=== PATIENT | male | born 1975 | race Caucasian/White ===

== ENCOUNTER 2018-12-12 15:04 | Emergency (ER) | payer MEDICAID, OTHER ==
[~2018-12-12] VITALS: Ht 170.2 cm; Wt 120.2 kg
[2018-12-12 15:19] VITALS: BP 111/81
--- NOTE | 2018-12-12 15:23 | NUR ---
PT W/C ASSISTED TO BED 11.
--- NOTE | 2018-12-12 15:24 | NUR ---
C/O L KNEE PAIN X 2 DAYS. DENIES TRAUMA. MED HX:DM
--- NOTE | 2018-12-12 15:32 | NUR ---
IDALIA ELI EVALUATING PT AT BEDSIDE.
[2018-12-12] MEDS ORDERED: KETOROLAC 30 MG/ML VIAL IM ONE (15:35)
--- NOTE | 2018-12-12 17:35 | NUR ---
APPLIED KNEE IMOBILIZER TO LEFT KNEE WITHOUT ANY ISSUES
[2018-12-12 17:40] VITALS: BP 112/76
--- NOTE | 2018-12-12 17:40 | NUR ---
Patient discharged with v/s stable. Written and verbal after care instructions given and explained. Patient alert, oriented and verbalized understanding of instructions. Ambulatory with crutchest and knee brace. All questions addressed prior to discharge. ID band removed. Patient advised to follow up with PMD. Rx of Naprosyn given. Patient educated on indication of medication including possible reaction and side effects. Opportunity to ask questions provided and answered.
== END 2018-12-12 17:40 | disposition home or self-care (01) ==
LOC: MED 15:04
DX: M25.562 Pain in left knee (principal); E11.9 Type 2 diabetes mellitus without complications
CPT/HCPCS: 29505; 73562; 96372; 99283; J1885; Q0092

== ENCOUNTER 2019-09-18 21:44 | Emergency (ER) | payer MEDICAID, OTHER ==
[~2019-09-18] VITALS: Ht 170.2 cm; Wt 113.4 kg
--- NOTE | 2019-09-18 21:44 | NUR ---
ALEKS JOHN ALS TO ER BED 07
[2019-09-18 21:47] VITALS: BP 156/93
[2019-09-18] MEDS ORDERED: NACL 0.9% 1,000 ML IV ONE (21:55)
--- NOTE | 2019-09-18 22:12 | NUR ---
44M PRESENTS TO ED BIBA FROM HOME WITH C/O ANXIETY S/P METH USE X3 HOURS AGO. CBL SOUNDS. RR EVEN AND UNLABORED. PT APPEARS DIAPHORETIC AND LETHARGIC SECONDARY TO METH USE. BOWEL SOUNDS NORMOACTIVE ON ALL QUADRANTS. DENIES SOB/COUGH. DENIES N/V/D. DENIES HEADACHE. MEDHX- DM NKA NEGATIVE FOR COVID SCREENING .
[2019-09-18 23:46] VITALS: BP 144/76
--- NOTE | 2019-09-19 00:37 | NUR ---
Patient discharged with v/s stable. Written and verbal after care instructions given and explained. Patient verbalized understanding. Ambulatory with steady gait. All questions addressed prior to discharge. Advised to follow up with PMD.
== END 2019-09-19 00:37 | disposition home or self-care (01) ==
LOC: MED 21:44
DX: F41.9 Anxiety disorder, unspecified (principal); F15.10 Other stimulant abuse, uncomplicated; E11.9 Type 2 diabetes mellitus without complications
CPT/HCPCS: 81002; 81025; 99283; J7030

== ENCOUNTER 2019-12-01 16:53 | Emergency (ER) | payer OTHER ==
[~2019-12-01] VITALS: Ht 170.2 cm; Wt 113.4 kg
[2019-12-01 17:05] VITALS: BP 136/98
== END 2019-12-01 18:05 | disposition home or self-care (01) ==
LOC: MED 16:53
DX: M79.641 Pain in right hand (principal); W57.XXXA Bitten or stung by nonvenomous insect and other nonvenomous arthropods, initial encounter; Y93.89 Activity, other specified; Y92.89 Other specified places as the place of occurrence of the external cause; Y99.8 Other external cause status
CPT/HCPCS: 99282

== ENCOUNTER 2022-12-29 14:55 | Inpatient (IN) | payer OTHER ==
[~2022-12-29] VITALS: Ht 170.2 cm; Wt 106.1 kg
[2022-12-29 15:14] VITALS: BP 128/90; PULSE 114; RESP 18; TEMP 97.9; O2SAT 98
[2022-12-29 17:13] LABS: BASOPHILS % (AUTO) 0.5 % (0.0-2.0); EOSINOPHILS # (AUTO) 0.1 K/uL (0-0.4); EOSINOPHILS % (AUTO) 1.2 % (0.0-4.0); HEMATOCRIT 41.7 % (36-52); HEMOGLOBIN 13.8 g/dL (12.0-18.0); LYMPHOCYTES # (AUTO) 2.4 K/uL (2.0-11.5); LYMPHOCYTES % (AUTO) 24.3 % (20.5-51.1); MEAN CORPUSCULAR HEMOGLOBIN 29 pg (27-31); MEAN CORPUSCULAR HGB CONC 33 g/dL (33-37); MONOCYTES # (AUTO) 0.7 K/uL (0.8-1.0); MONOCYTES % (AUTO) 7.1 % (1.7-9.3); NEUTROPHILS # (AUTO) 6.6 K/uL (1.8-7.7); NEUTROPHILS % (AUTO) 66.9 % (42.2-75.2); PLATELET COUNT (AUTO) 329 K/uL (140-450); RED BLOOD CELL COUNT(AUTO) 4.74 MIL/uL (4.20-6.10); RED CELL DISTRIBUTION WIDTH 15.1 % (11.6-13.7); WHITE BLOOD COUNT (AUTO) 9.8 K/uL (4.8-10.8)
[2022-12-29 17:23] LABS: ALBUMIN 3.3 g/dL (3.4-5.0); ANION GAP 12.6 (8-16); CALCIUM 8.8 mg/dL (8.5-10.1); CARBON DIOXIDE 28.2 mmol/L (21-32); CREATININE 1.1 mg/dL (0.6-1.3); POTASSIUM 4.8 mmol/L (3.5-5.1); TOTAL BILIRUBIN 0.4 mg/dL (0.0-1.0); TOTAL PROTEIN, SERUM 8.1 g/dL (6.4-8.2)
[2022-12-29] MEDS ORDERED: NACL 0.9% 500 ML IV ONE (17:55)
[2022-12-29 17:58] VITALS: O2SAT 98
[2022-12-29 18:29] LABS: AMPHETAMINE, URINE POSITIVE ng/ml (NEG <=1000); BARBITURATE, URINE NEGATIVE ng/ml (NEG <=200); BENZODIAZEPINE, URINE NEGATIVE ng/mL (NEG <=200); CANNABINOID, URINE NEGATIVE ng/mL (NEG <=50); COCAINE, URINE NEGATIVE ng/mL (NEG <=300); OPIATE, URINE NEGATIVE ng/mL (NEG <=2000); PHENCYCLIDINE SCREEN,URINE NEGATIVE ng/mL (NEG <=25)
[2022-12-29 19:44] VITALS: O2SAT 98
[2022-12-29] MEDS ORDERED: FUROSEMIDE 40 MG/4 ML VIAL IVP SCH (23:20)
[2022-12-29] MEDS ORDERED: ONDANSETRON 4 MG/2 ML VIAL IVP PRN ×2 (23:35→23:45)
[2022-12-29] MEDS ORDERED: DEXTROSE 50% 50 ML SYR IVP PRN ×2 (23:35→23:45)
[2022-12-29] MEDS ORDERED: ACETAMINOPHEN 325 MG TAB PO PRN ×2 (23:35→23:45)
[2022-12-29] MEDS ORDERED: INSULIN LISPRO SLIDING SCALE 100 UNITS/ML VIAL SUBQ PRN (23:35)
[2022-12-30 03:10] VITALS: O2SAT 99
[2022-12-30 06:55] LABS: BASOPHILS # (AUTO) 0.1 K/uL (0.00-0.22); BASOPHILS % (AUTO) 0.7 % (0.0-2.0); EOSINOPHILS # (AUTO) 0.1 K/uL (0-0.4); EOSINOPHILS % (AUTO) 1.5 % (0.0-4.0); HEMATOCRIT 42.7 % (36-52); HEMOGLOBIN 13.6 g/dL (12.0-18.0); LYMPHOCYTES # (AUTO) 2.8 K/uL (2.0-11.5); LYMPHOCYTES % (AUTO) 30.5 % (20.5-51.1); MEAN CORPUSCULAR HEMOGLOBIN 28 pg (27-31); MEAN CORPUSCULAR HGB CONC 32 g/dL (33-37); MEAN CORPUSCULAR VOLUME 88.6 fL (80-94); MONOCYTES # (AUTO) 0.7 K/uL (0.8-1.0); MONOCYTES % (AUTO) 7.6 % (1.7-9.3); NEUTROPHILS # (AUTO) 5.4 K/uL (1.8-7.7); NEUTROPHILS % (AUTO) 59.7 % (42.2-75.2); PLATELET COUNT (AUTO) 342 K/uL (140-450); RED BLOOD CELL COUNT(AUTO) 4.82 MIL/uL (4.20-6.10); RED CELL DISTRIBUTION WIDTH 15.2 % (11.6-13.7); WHITE BLOOD COUNT (AUTO) 9.1 K/uL (4.8-10.8)
[2022-12-30] MEDS: INSULIN LISPRO SLIDING SCALE 100 UNITS/ML VIAL SUBQ PRN ×3 (07:16→20:59)
[2022-12-30] MEDS ORDERED: BLOOD GLUCOSE MONITORING 1 DEV DEV FS SCH (07:30)
[2022-12-30] MEDS: BLOOD GLUCOSE MONITORING 1 DEV DEV FS SCH ×4 (07:30→21:00)
[2022-12-30 07:40] LABS: CALCIUM 8.7 mg/dL (8.5-10.1); CARBON DIOXIDE 29.7 mmol/L (21-32); MAGNESIUM 1.7 mg/dL (1.8-2.4); POTASSIUM 4.7 mmol/L (3.5-5.1); TOTAL BILIRUBIN 0.5 mg/dL (0.0-1.0); TOTAL PROTEIN, SERUM 7.5 g/dL (6.4-8.2)
[2022-12-30] MEDS ORDERED: INSULIN LANTUS 100 UNITS/ML 10 ML VIAL SUBQ SCH (09:00)
[2022-12-30] MEDS ORDERED: FUROSEMIDE 20 MG/2 ML VIAL IVP SCH (09:00)
[2022-12-30] MEDS ORDERED: ENOXAPARIN 40 MG/0.4 ML SYR SUBQ SCH (09:00)
[2022-12-30] MEDS: FUROSEMIDE 20 MG/2 ML VIAL IVP SCH ×2 (09:05→20:50)
[2022-12-30] MEDS: INSULIN LANTUS 100 UNITS/ML 10 ML VIAL SUBQ SCH (09:10)
[2022-12-30] MEDS: ENOXAPARIN 40 MG/0.4 ML SYR SUBQ SCH (09:13)
[2022-12-30 15:30] VITALS: RESP 20; O2SAT 100
[2022-12-30 16:00] VITALS: BP 119/78; PULSE 103; RESP 20; TEMP 96.3; O2SAT 99
[2022-12-30 20:00] VITALS: BP 108/90; PULSE 108; RESP 18; TEMP 96.9; O2SAT 96; O2SAT 99
[2022-12-30] MEDS ORDERED: MAGNESIUM OXIDE 400 MG TAB PO ONE (20:10)
[2022-12-30] MEDS: carvediloL 3.125 MG TAB PO SCH (20:49)
[2022-12-31] VITALS (10 sets, daily range): BP systolic 99–137; BP diastolic 62–99; PULSE 90–107; RESP 18–19; TEMP 97.4–98.8; O2SAT 98–100
[2022-12-31] MEDS: BLOOD GLUCOSE MONITORING 1 DEV DEV FS SCH ×3 (05:56→15:32)
[2022-12-31] MEDS: INSULIN LISPRO SLIDING SCALE 100 UNITS/ML VIAL SUBQ PRN ×3 (05:56→15:47)
[2022-12-31] MEDS: FUROSEMIDE 20 MG/2 ML VIAL IVP SCH (08:30)
[2022-12-31] MEDS: carvediloL 3.125 MG TAB PO SCH (08:31)
[2022-12-31] MEDS: INSULIN LANTUS 100 UNITS/ML 10 ML VIAL SUBQ SCH (08:37)
[2022-12-31] MEDS: ENOXAPARIN 40 MG/0.4 ML SYR SUBQ SCH (08:38)
[2022-12-31] MEDS ORDERED: SPIRONOLACTONE 25 MG TAB PO SCH (09:00)
[2022-12-31] MEDS ORDERED: lisinopriL 5 MG TAB PO SCH (09:00)
[2022-12-31] MEDS ORDERED: FLAS1EAC2 TP (16:35)
[2022-12-31] MEDS ORDERED: LANC-486 TP (16:35)
[2022-12-31] MEDS ORDERED: METF-1243 PO (16:35)
[2022-12-31] MEDS ORDERED: LISI5TAB24 PO (16:35)
[2022-12-31] MEDS ORDERED: SPIR25TA PO (16:35)
[2022-12-31] MEDS ORDERED: LANTUS SUBQ (16:35)
[2022-12-31] MEDS ORDERED: FURO-572 PO (16:35)
[2022-12-31] MEDS ORDERED: CARV3.122 PO (16:35)
[2022-12-31] MEDS ORDERED: INSU-656 SUBQ (16:35)
== END 2022-12-31 17:00 | disposition home or self-care (01) | DRG 194 ==
LOC: MED 14:55 → MTU 23:39 → MED 23:48 → MTU 12-30 13:07
PROVIDERS: ADMIT Internal Medicine; ATTEND Internal Medicine
DX: I11.0 Hypertensive heart disease with heart failure (principal); E44.0 Moderate protein-calorie malnutrition; I50.23 Acute on chronic systolic (congestive) heart failure; F15.10 Other stimulant abuse, uncomplicated; Z91.199 Patient's noncompliance with other medical treatment and regimen due to unspecified reason; Z72.0 Tobacco use; Z68.36 Body mass index [BMI] 36.0-36.9, adult
CPT/HCPCS: 36415; 71045; 71275; 80053; 80305; 82948; 83036; 83735; 83880; 84443; 84484; 85025; 85379; 87081; 93005; 93970; 96361; 96374; 99285; J1650; J1815; J1940; Q9967